=== PATIENT | female | born 1975 | race Caucasian/White ===

== ENCOUNTER → 2021-09-20 | Outpatient (CLI) | payer OTHER ==
--- NOTE | 2021-09-20 15:50 | Diagnostic Imaging Report ---
Digital mammogram bilateral screening This study was compared to the prior exam of 01/16/2015. At this time, there are no current complaints. The fibroglandular tissue in both breasts is heterogeneously dense. This does limit the sensitivity of this exam. On the MLO view of the right breast overlying the superior margin of the pectoralis muscle there is a 1.1 cm asymmetry approximately 14 cm deep to the nipple. This finding is not quite as conspicuous on the tomographic images but seems to persist to some degree. I would recommend that a compression view of this area be obtained in the MLO projection as well as an XCC view of the right breast and a true lateral view for further study. Ultrasound should also be performed. The left breast is unchanged. IMPRESSION: Additional mammographic views and ultrasound of the right breast are recommended for further study. ACR BI-RADS Category 0: Incomplete. (Needs additional imaging evaluation). Result letter will be mailed to the patient. Note: At least 10% of breast cancer is not imaged by mammography. Dictated by: Dictated on workstation # [id number]
== END ==
LOC: RAD 11:15
PROVIDERS: ATTEND Nurse Practitioner Family
DX: Z12.31 Encounter for screening mammogram for malignant neoplasm of breast (principal)
CPT/HCPCS: 77063; 77067

== ENCOUNTER → 2021-10-03 | Outpatient (CLI) | payer OTHER ==
--- NOTE | 2021-10-03 09:35 | Diagnostic Imaging Report ---
INDICATION: Right breast density. Patient presents for additional views. COMPARISON: Correlation is made with the recent screening study from 09/20/2021 as well as prior mammograms from 01/16/2015. TECHNIQUE: Unilateral right 2D and 3D diagnostic mammography was performed with CAD. This included exaggerated CC, spot compression exaggerated CC, and mediolateral as well as spot compression MLO. FINDINGS: Additional views fail to demonstrate a discrete mass. The density noted in the superior right breast does show some dispersion of fibroglandular elements with additional views and most likely represents fibroglandular tissue. No underlying mass is identified. No suspicious microcalcifications are seen. IMPRESSION: Additional views fail to demonstrate a discrete mass. The patient may return to routine annual screening mammography. ACR BI-RADS Category 1: Negative. Result letter will be mailed to the patient. Note: At least 10% of breast cancer is not imaged by mammography. Dictated by: Dictated on workstation # [id number]
== END ==
LOC: RAD 09:15
PROVIDERS: ATTEND Nurse Practitioner Family
DX: R92.2 Inconclusive mammogram (principal)
CPT/HCPCS: 77065; G0279